=== PATIENT | female | born 1995 ===

== ENCOUNTER 2022-07-27 05:00 | Observation (INO) | payer OTHER, SELFPAY ==
[2022-07-27 05:15] VITALS: BMI 27.5
--- NOTE | 2022-07-27 06:24 | OBADM ---
This patient, Parul Collins, admitted to the OB room Labor/Delivery/Recovery 106 for observation. Patient/family oriented to hospital policies and general routines including ID bracelet, bed and alarms, visiting hours, pain management, procedures, bathroom and other care routines, personal items, smoking policy, room service/diet, and visiting hours. Patient/Family are encouraged to report perceived risks to care and to ask questions if they do not understand what they are told or what they should do.
--- NOTE | 2022-07-27 06:36 | PC.NURSE ---
[address] DASH TO UPDATE ABOUT PT ARRIVAL AND CURRENT PT STATUS. SVE UNCHANGED. PT FEELS COMFORTABLE GOING HOME. DISCHARGE ORDERS RECEIVED. 0622 DISCHARGE INSTRUCTIONS GIVEN TO PT WRITTEN AND VERBALLY. PT DENIES QUESTIONS OR CONCERNS. PT LEAVES L&D AMBULATORY ACCOMPANIED BY MOM AND BOYFRIEND.
--- NOTE | 2022-07-30 07:39 | PM.OBTRLD ---
OB - Triage/Final Diagnosis Visit Information Reason for evaluation: threatened labor Comments/Additional reasons for admission: I have assessed the risk for this patient, Parul Collins, and determined that she would benefit from observation care.
== END 2022-07-27 06:29 | disposition home or self-care (01) ==
LOC: ANHLDR 06:03
PROVIDERS: Admitting Provider Obstetrics & Gynecology Gynecology; Visit Provider Obstetrics & Gynecology Gynecology
DX: O47.1 False labor at or after 37 completed weeks of gestation (principal); Z3A.38 38 weeks gestation of pregnancy
CPT/HCPCS: G0378; G0379